=== PATIENT | female | born 1985 | race African-American/Black ===

== ENCOUNTER 2019-07-27 19:26 | Emergency (ER) | payer OTHER ==
[~2019-07-27] VITALS: Ht 162.6 cm; Wt 68.0 kg
[~2019-07-27 19:26] MED LIST: BACTRIM DS TAB1 EACH PO; IBUPROFEN 600600 M1 PO; KEFLEX500 MG PO; LITHIUM CARBON300 M3 PO; NAPROSYN500 MG PO; NORCO 5-325 TA1 EACH PO; NORFLEX100 MG PO; PREDNISONE 20 M20 MG PO
[2019-07-27] MEDS ORDERED: NORCO 5-325 TA1 EAC1 PO (20:21)
[2019-07-27] MEDS ORDERED: PENICILLIN V P500 MG PO (20:21)
[2019-07-27 20:40] VITALS: BP 100/59
== END 2019-07-27 20:40 | disposition home or self-care (01) ==
LOC: ER 19:26
DX: K08.89 Other specified disorders of teeth and supporting structures (principal); R22.0 Localized swelling, mass and lump, head; F17.210 Nicotine dependence, cigarettes, uncomplicated

== ENCOUNTER 2019-09-26 10:19 | Emergency (ER) | payer OTHER ==
[~2019-09-26] VITALS: Ht 160 cm; Wt 61.2 kg
[~2019-09-26 10:19] MED LIST changes: +NORCO 5-325 TA1 EAC1 PO; +PENICILLIN V P500 MG PO
[2019-09-26] MEDS ORDERED: NORCO 7.5-3251 EACH PO (11:13)
[2019-09-26 12:22] VITALS: BP 105/78
== END 2019-09-26 12:23 | disposition home or self-care (01) ==
LOC: ER 10:19
DX: S82.65XA Nondisplaced fracture of lateral malleolus of left fibula, initial encounter for closed fracture (principal); F17.210 Nicotine dependence, cigarettes, uncomplicated; W18.39XA Other fall on same level, initial encounter; Y92.89 Other specified places as the place of occurrence of the external cause; Y93.89 Activity, other specified; Y99.8 Other external cause status